=== PATIENT | female | born 1960 | race Caucasian/White ===

== ENCOUNTER 2016-05-16 10:44 | Emergency (ER) | payer MEDICARE, MEDICAID ==
[2016-05-16] MEDS ORDERED: DEXAMETHASONE 10 MG/ML VIAL IVP STA (13:02)
[2016-05-16] MEDS ORDERED: ONDANSETRON 4 MG/2 ML VIAL IVP STA (13:02)
[2016-05-16] MEDS ORDERED: ALBUTEROL NEB 2.5 MG/3 ML INH STA (13:02)
[2016-05-16] MEDS ORDERED: KETOROLAC 60 MG/2 ML VIAL IVP STA (13:02)
[2016-05-16] MEDS ORDERED: SODIUM CHLORIDE 0.9% 1,000 ML IV ONE ×2 (13:02→13:09)
[2016-05-16] MEDS ORDERED: DEXAMETHASONE 10 MG/ML VIAL ONE (13:09)
[2016-05-16] MEDS ORDERED: ONDANSETRON 4 MG/2 ML VIAL ONE (13:09)
[2016-05-16] MEDS ORDERED: KETOROLAC 60 MG/2 ML VIAL ONE (13:09)
[2016-05-16] MEDS ORDERED: ALBUTEROL NEB 2.5 MG/3 ML INH ONE (13:10)
== END 2016-05-16 14:40 | disposition home or self-care (01) ==
DX: J11.1 Influenza due to unidentified influenza virus with other respiratory manifestations (principal); I10 Essential (primary) hypertension
CPT/HCPCS: 36415; 80053; 83690; 85025; 94640; 94664; 96361; 96374; 96375; 99283; 99284; J7613

== ENCOUNTER 2016-05-20 | Emergency (ER) | payer MEDICARE, MEDICAID | END 2016-05-20 13:30 | disposition home or self-care (01) ==

== ENCOUNTER 2016-07-18 12:03 | Outpatient (CLI) | payer MEDICARE, MEDICAID | END 2016-07-18 12:04 | disposition home or self-care (01) | DX: E53.8 Deficiency of other specified B group vitamins (principal); E78.5 Hyperlipidemia, unspecified; E55.9 Vitamin D deficiency, unspecified; I10 Essential (primary) hypertension; J45.998 Other asthma ==

== ENCOUNTER 2016-08-14 14:25 | Outpatient (CLI) | payer MEDICARE, MEDICAID | END 2016-08-14 14:26 | disposition home or self-care (01) | LOC: DI 14:25 | PROVIDERS: ATTEND Family Medicine | DX: Z53.9 Procedure and treatment not carried out, unspecified reason (principal) ==

== ENCOUNTER 2016-08-14 14:54 | Outpatient (CLI) | payer MEDICARE, MEDICAID ==
--- NOTE | 2016-08-15 10:09 | XRAY Report ---
THREE-VIEW BILATERAL KNEES: 08/14/2016 CLINICAL INDICATION: Pain. FINDINGS: AP, lateral, sunrise views of the bilateral knees demonstrate moderate right and mild left knee osteoarthritis. There is no evidence of fracture or dislocation. No effusion is present. IMPRESSION: MODERATE RIGHT AND MILD LEFT KNEE OSTEOARTHRITIS. JOB #: [id number] EXT JOB #:[id number]
--- NOTE | 2016-08-15 10:11 | XRAY Report ---
LEFT HIP AND PELVIS: 08/14/2016 CLINICAL INDICATION: Pain. FINDINGS: Frontal view of the hips and pelvis and frogleg lateral view of the left hip demonstrate m ild osteoarthritis. There is no evidence of fracture or dislocation. The visualized bowel gas patte rn appears unremarkable. IMPRESSION: MILD LEFT HIP OSTEOARTHRITIS. JOB #: [id number] EXT JOB #:[id number]
== END 2016-08-14 14:55 | disposition home or self-care (01) ==
LOC: DI 14:54
PROVIDERS: ATTEND Family Medicine
DX: M17.0 Bilateral primary osteoarthritis of knee (principal); M16.12 Unilateral primary osteoarthritis, left hip

== ENCOUNTER 2016-09-09 13:55 | Outpatient (CLI) | payer MEDICARE, MEDICAID ==
--- NOTE | 2016-09-09 16:30 | Mammography Report ---
DIGITAL DIAGNOSTIC BILATERAL MAMMOGRAM: 09/09/2016 CLINICAL INDICATION: Right breast pain. COMPARISON: 03/28/2013, 05/02/2008, 08/04/2007. TECHNIQUE: Routine CC and MLO projections were obtained of the breasts. The breasts again demonstrate scattered fibroglandular densities bilaterally. Post-biopsy changes in the right breast are stable. Punctate, typically benign calcifications are noted. No suspicious ma ss, clustered microcalcifications, or regions of architectural distortion are identified. IMPRESSION: BENIGN FINDINGS. RECOMMENDATION: ROUTINE ANNUAL SCREENING UNLESS OTHERWISE CLINICALLY INDICATED. BIRADS CATEGORY: 2, BENIGN FINDINGS. STANDARD QUALIFYING STATEMENTS 1. This examination was reviewed with the aid of Computed-Aided Detection (CAD). 2. A negative or benign imaging report should not delay biopsy if clinically suspicious findings are present. Consider surgical consultation if warranted. More than 5% of cancers are not identified b y imaging. 3. Dense breasts may obscure an underlying neoplasm. JOB #: [id number] EXT JOB #:[id number]
== END 2016-09-09 13:56 | disposition home or self-care (01) ==
LOC: DI 13:55
PROVIDERS: ATTEND Family Medicine
DX: N64.4 Mastodynia (principal)
CPT/HCPCS: 77066

== ENCOUNTER 2020-12-04 11:55 | Outpatient (CLI) | payer MEDICARE, MEDICAID ==
[2020-12-04 12:18] LABS: BASOPHILS # (AUTO) 0.1 10^3/uL (0.0-0.1); BASOPHILS % (AUTO) 0.7 %; EOSINOPHILS # (AUTO) 0.2 10^3/uL (0.0-0.7); EOSINOPHILS % (AUTO) 2.7 %; HCT - HEMATOCRIT 44.6 % (37.0-47.0); HGB - HEMOGLOBIN 14.6 g/dL (12.0-16.0); LYMPHOCYTES # (AUTO) 2.4 10^3/uL (1.5-3.5); LYMPHOCYTES % (AUTO) 34.9 %; MEAN CORPUSCULAR HGB CONC 32.7 g/dL (32.0-36.0); MEAN CORPUSCULAR VOLUME 88.7 fL (81.0-99.0); MEAN PLATELET VOLUME 8.9 fL (7.9-10.8); MONOCYTES # (AUTO) 0.6 10^3/uL (0.0-1.0); NEUTROPHILS # (AUTO) 3.5 10^3/uL (1.5-6.6); NEUTROPHILS % (AUTO) 52.1 %; PLT - PLATELET COUNT 266 10^3/uL (130-450); RED BLOOD COUNT 5.03 10^6/uL (4.20-5.40); RED CELL DISTRIBUTION WIDTH 13.5 % (12.0-15.0); WHITE BLOOD COUNT 6.8 x10^3/uL (4.8-10.8)
[2020-12-04 13:03] LABS: ALBUMIN/GLOBULIN RATIO 1.1 (1.0-2.2); ALKALINE PHOSPHATASE 64 IU/L (42-121); ALT ALANINE AMINOTRANSFERASE 16 IU/L (10-60); AST ASPARTATE AMINOTRANSFERASE 18 IU/L (10-42); BILIRUBIN,TOTAL 0.5 mg/dL (0.2-1.0); BUN - BLOOD UREA NITROGEN 12 mg/dL (6-20); CALCIUM 9.5 mg/dL (8.5-10.3); CARBON DIOXIDE - CO2 25 mmol/L (21-32); CHLORIDE 107 mmol/L (101-111); CHOL/HDL RATIO 4.3 (<4.4); CHOLESTEROL 213 mg/dL; CREATININE 0.7 mg/dL (0.4-1.0); GFR - MDRD 86 (>89); GLUCOSE 106 mg/dL (70-100); HDL CHOLESTEROL 50 mg/dL; LDL CHOLESTEROL,CALCULATED 124 mg/dL; LDL/HDL RATIO 2.5 (<4.4); POTASSIUM 4.3 mmol/L (3.5-5.0); SODIUM 142 mmol/L (135-145); TOTAL PROTEIN 7.5 g/dL (6.7-8.2); TRIGLYCERIDES 195 mg/dL; VLDL CHOLESTEROL 39 mg/dL
== END 2020-12-04 11:56 | disposition home or self-care (01) ==
LOC: LAB 11:55
PROVIDERS: ATTEND Family Medicine
DX: E78.5 Hyperlipidemia, unspecified (principal)
CPT/HCPCS: 36415; 80053; 80061; 83721; 84443; 85025

== ENCOUNTER 2021-07-18 09:59 | Outpatient (CLI) | payer MEDICARE, MEDICAID ==
[2021-07-18 10:19] LABS: BASOPHILS # (AUTO) 0.1 10^3/uL (0.0-0.1); EOSINOPHILS # (AUTO) 0.2 10^3/uL (0.0-0.7); EOSINOPHILS % (AUTO) 2.7 %; HGB - HEMOGLOBIN 14.6 g/dL (12.0-16.0); LYMPHOCYTES # (AUTO) 2.7 10^3/uL (1.5-3.5); LYMPHOCYTES % (AUTO) 36.6 %; MEAN CORPUSCULAR HEMOGLOBIN 28.1 pg (27.0-31.0); MEAN CORPUSCULAR HGB CONC 32.4 g/dL (32.0-36.0); MEAN CORPUSCULAR VOLUME 86.5 fL (81.0-99.0); MEAN PLATELET VOLUME 8.9 fL (7.9-10.8); MONOCYTES # (AUTO) 0.6 10^3/uL (0.0-1.0); MONOCYTES % (AUTO) 7.5 %; NEUTROPHILS # (AUTO) 3.8 10^3/uL (1.5-6.6); NEUTROPHILS % (AUTO) 51.9 %; PLT - PLATELET COUNT 301 10^3/uL (130-450); RED CELL DISTRIBUTION WIDTH 13.4 % (12.0-15.0); WHITE BLOOD COUNT 7.3 x10^3/uL (4.8-10.8)
[2021-07-18 10:38] LABS: ALBUMIN 3.9 g/dL (3.2-5.5); ALKALINE PHOSPHATASE 61 IU/L (42-121); ALT ALANINE AMINOTRANSFERASE 16 IU/L (10-60); AST ASPARTATE AMINOTRANSFERASE 20 IU/L (10-42); BILIRUBIN,TOTAL 0.6 mg/dL (0.2-1.0); BUN - BLOOD UREA NITROGEN 15 mg/dL (6-20); CALCIUM 9.2 mg/dL (8.5-10.3); CARBON DIOXIDE - CO2 26 mmol/L (21-32); CHLORIDE 102 mmol/L (101-111); CHOL/HDL RATIO 3.6 (<4.4); CHOLESTEROL 200 mg/dL; CREATININE 0.8 mg/dL (0.4-1.0); GFR - MDRD 73 (>89); GLUCOSE 105 mg/dL (70-100); HDL CHOLESTEROL 56 mg/dL; LDL CHOLESTEROL,CALCULATED 103 mg/dL; LDL/HDL RATIO 1.8 (<4.4); SODIUM 138 mmol/L (135-145); TOTAL PROTEIN 7.9 g/dL (6.7-8.2); TRIGLYCERIDES 206 mg/dL; VLDL CHOLESTEROL 41 mg/dL
[2021-07-18 10:49] LABS: THYROID STIMULATING HORMONE 4.76 uIU/mL (0.34-5.60)
== END 2021-07-18 10:00 | disposition home or self-care (01) ==
LOC: LAB 09:59
PROVIDERS: ATTEND Family Medicine
DX: I10 Essential (primary) hypertension (principal); E78.5 Hyperlipidemia, unspecified; E53.8 Deficiency of other specified B group vitamins; Z78.9 Other specified health status
CPT/HCPCS: 36415; 80053; 80061; 82607; 83721; 84443; 85025; 87902

== ENCOUNTER 2022-01-29 10:33 | Outpatient (CLI) | payer MEDICARE, MEDICAID ==
[2022-01-29 10:49] LABS: BASOPHILS # (AUTO) 0.1 10^3/uL (0.0-0.1); BASOPHILS % (AUTO) 1.1 %; EOSINOPHILS # (AUTO) 0.4 10^3/uL (0.0-0.7); EOSINOPHILS % (AUTO) 5.6 %; HCT - HEMATOCRIT 42.3 % (37.0-47.0); HGB - HEMOGLOBIN 13.5 g/dL (12.0-16.0); LYMPHOCYTES # (AUTO) 2.7 10^3/uL (1.5-3.5); LYMPHOCYTES % (AUTO) 35.9 %; MEAN CORPUSCULAR HEMOGLOBIN 28.1 pg (27.0-31.0); MEAN CORPUSCULAR HGB CONC 31.9 g/dL (32.0-36.0); MEAN CORPUSCULAR VOLUME 87.9 fL (81.0-99.0); MEAN PLATELET VOLUME 8.7 fL (7.9-10.8); MONOCYTES # (AUTO) 0.7 10^3/uL (0.0-1.0); MONOCYTES % (AUTO) 8.6 %; NEUTROPHILS # (AUTO) 3.7 10^3/uL (1.5-6.6); NEUTROPHILS % (AUTO) 48.4 %; PLT - PLATELET COUNT 254 10^3/uL (130-450); RED BLOOD COUNT 4.81 10^6/uL (4.20-5.40); RED CELL DISTRIBUTION WIDTH 13.6 % (12.0-15.0); WHITE BLOOD COUNT 7.5 x10^3/uL (4.8-10.8)
[2022-01-29 11:17] LABS: ALBUMIN 3.8 g/dL (3.2-5.5); ALBUMIN/GLOBULIN RATIO 1.1 (1.0-2.2); ALKALINE PHOSPHATASE 51 IU/L (42-121); ALT ALANINE AMINOTRANSFERASE 15 IU/L (10-60); AST ASPARTATE AMINOTRANSFERASE 18 IU/L (10-42); BILIRUBIN,TOTAL 0.5 mg/dL (0.2-1.0); BUN - BLOOD UREA NITROGEN 14 mg/dL (6-20); CALCIUM 9.2 mg/dL (8.5-10.3); CARBON DIOXIDE - CO2 25 mmol/L (21-32); CHLORIDE 107 mmol/L (101-111); CHOL/HDL RATIO 3.5 (<4.4); CHOLESTEROL 198 mg/dL; CREATININE 0.7 mg/dL (0.4-1.0); GFR - MDRD 86 (>89); GLUCOSE 98 mg/dL (70-100); HDL CHOLESTEROL 57 mg/dL; LDL CHOLESTEROL,CALCULATED 111 mg/dL; LDL/HDL RATIO 1.9 (<4.4); SODIUM 139 mmol/L (135-145); TOTAL PROTEIN 7.3 g/dL (6.7-8.2); TRIGLYCERIDES 148 mg/dL; VLDL CHOLESTEROL 30 mg/dL
[2022-01-30 04:09] LABS: HCV AB <0.1 s/co ratio (0.0-0.9)
== END 2022-01-29 10:34 | disposition home or self-care (01) ==
LOC: LAB 10:33
PROVIDERS: ATTEND Family Medicine
DX: E53.8 Deficiency of other specified B group vitamins (principal); I10 Essential (primary) hypertension; E78.5 Hyperlipidemia, unspecified; Z78.9 Other specified health status
CPT/HCPCS: 36415; 80053; 80061; 82607; 83721; 85025; 86803

== ENCOUNTER 2022-08-20 10:06 | Outpatient (CLI) | payer MEDICARE, MEDICAID ==
[2022-08-20 10:24] LABS: BASOPHILS # (AUTO) 0.1 10^3/uL (0.0-0.1); BASOPHILS % (AUTO) 1.1 %; EOSINOPHILS # (AUTO) 0.3 10^3/uL (0.0-0.7); EOSINOPHILS % (AUTO) 4.1 %; HCT - HEMATOCRIT 42.9 % (37.0-47.0); HGB - HEMOGLOBIN 13.7 g/dL (12.0-16.0); LYMPHOCYTES # (AUTO) 2.6 10^3/uL (1.5-3.5); LYMPHOCYTES % (AUTO) 35.5 %; MEAN CORPUSCULAR HEMOGLOBIN 28.3 pg (27.0-31.0); MEAN CORPUSCULAR HGB CONC 31.9 g/dL (32.0-36.0); MEAN CORPUSCULAR VOLUME 88.6 fL (81.0-99.0); MEAN PLATELET VOLUME 9.2 fL (7.9-10.8); MONOCYTES # (AUTO) 0.6 10^3/uL (0.0-1.0); MONOCYTES % (AUTO) 7.6 %; NEUTROPHILS # (AUTO) 3.8 10^3/uL (1.5-6.6); NEUTROPHILS % (AUTO) 51.3 %; PLT - PLATELET COUNT 277 10^3/uL (130-450); RED BLOOD COUNT 4.84 10^6/uL (4.20-5.40); RED CELL DISTRIBUTION WIDTH 13.2 % (12.0-15.0); WHITE BLOOD COUNT 7.4 x10^3/uL (4.8-10.8)
[2022-08-20 10:36] LABS: ALBUMIN 3.9 g/dL (3.2-5.5); ALBUMIN/GLOBULIN RATIO 1.1 (1.0-2.2); BILIRUBIN,TOTAL 0.4 mg/dL (0.2-1.0); CREATININE 0.7 mg/dL (0.4-1.0); POTASSIUM 3.8 mmol/L (3.5-5.0); TOTAL PROTEIN 7.4 g/dL (6.7-8.2)
== END 2022-08-20 10:07 | disposition home or self-care (01) ==
LOC: LAB 10:06
PROVIDERS: ATTEND Family Medicine
DX: I10 Essential (primary) hypertension (principal); E78.5 Hyperlipidemia, unspecified
CPT/HCPCS: 36415; 80053; 84443; 85025

== ENCOUNTER 2023-05-14 12:58 | Outpatient (CLI) | payer MEDICARE, MEDICAID ==
--- NOTE | 2023-05-15 09:14 | Mammography Report ---
BILATERAL DIGITAL SCREENING MAMMOGRAM 3D/2D: 05/14/2023 CLINICAL: Routine screening. Comparison is made to exam dated: 09/09/2016 mammogram - [facility]. There are scattered areas of fibroglandular density in both breasts (category b / 25%-50% glandular t issue). There are benign calcifications in both breasts. There also is a biopsy clip in the right breast. No significant masses, calcifications, or other findings are seen in either breast. There has been no significant interval change. IMPRESSION: BENIGN There is no mammographic evidence of malignancy. A 1 year screening mammogram is recommended. Based on the Tyrer Cuzick model (a risk assessment model) the patient's lifetime risk is 5.1% and her 10 year risk is 2.1%. According to the ACR, ACS, and NCCN guidelines, an annual breast MRI exam karolina g with mammogram is recommended if the patient's lifetime risk is 20% or greater. This exam was interpreted at Station ID: [id number]. NOTE: For mammograms, a report in lay terms will be sent to the patient. Approximately 15% of breast malignancies will not be visualized mammographically. In the management of a palpable breast mass, a negative mammogram must not discourage biopsy of a clinically suspicious lesion. Electronically Signed By: Andrea lynen/zac:05/14/2023 13:43:34 letter sent: No_Letter ACR BI-RADS Category 2: Benign Finding(s) 3342F PARENCHYMAL PATTERN: (A) - The breast(s) demonstrate(s) scattered fibroglandular densities. BI-RADS CATEGORY: (2) - 2 Mammogram [id number] 1 year screening LATERALITY: (B)
== END 2023-05-14 12:59 | disposition home or self-care (01) ==
LOC: DI 12:58
DX: Z12.31 Encounter for screening mammogram for malignant neoplasm of breast (principal); R92.323 Mammographic fibroglandular density, bilateral breasts

== ENCOUNTER 2023-05-20 12:19 | Outpatient (CLI) | payer MEDICARE, MEDICAID ==
[2023-05-20 12:35] LABS: BASOPHILS # (AUTO) 0.1 10^3/uL (0.0-0.1); BASOPHILS % (AUTO) 0.9 %; EOSINOPHILS # (AUTO) 0.2 10^3/uL (0.0-0.7); EOSINOPHILS % (AUTO) 2.6 %; HCT - HEMATOCRIT 46.9 % (37.0-47.0); HGB - HEMOGLOBIN 14.7 g/dL (12.0-16.0); LYMPHOCYTES # (AUTO) 2.7 10^3/uL (1.5-3.5); LYMPHOCYTES % (AUTO) 30.4 %; MEAN CORPUSCULAR HEMOGLOBIN 27.6 pg (27.0-31.0); MEAN CORPUSCULAR HGB CONC 31.3 g/dL (32.0-36.0); MEAN CORPUSCULAR VOLUME 88.2 fL (81.0-99.0); MEAN PLATELET VOLUME 9.1 fL (7.9-10.8); MONOCYTES # (AUTO) 0.7 10^3/uL (0.0-1.0); MONOCYTES % (AUTO) 8.4 %; NEUTROPHILS % (AUTO) 57.5 %; PLT - PLATELET COUNT 298 10^3/uL (130-450); RED BLOOD COUNT 5.32 10^6/uL (4.20-5.40); RED CELL DISTRIBUTION WIDTH 13.4 % (12.0-15.0); WHITE BLOOD COUNT 8.8 x10^3/uL (4.8-10.8)
[2023-05-20 13:12] LABS: ALBUMIN 4.3 g/dL (3.2-5.5); ALBUMIN/GLOBULIN RATIO 1.2 (1.0-2.2); ALKALINE PHOSPHATASE 69 IU/L (42-121); ALT ALANINE AMINOTRANSFERASE 20 IU/L (10-60); AST ASPARTATE AMINOTRANSFERASE 18 IU/L (10-42); BILIRUBIN,TOTAL 0.4 mg/dL (0.2-1.0); BUN - BLOOD UREA NITROGEN 11 mg/dL (6-20); CALCIUM 9.7 mg/dL (8.5-10.3); CARBON DIOXIDE - CO2 29 mmol/L (21-32); CHLORIDE 105 mmol/L (101-111); CHOL/HDL RATIO 3.4 (<4.4); CHOLESTEROL 182 mg/dL; CREATININE 0.7 mg/dL (0.6-1.3); GFR - MDRD 85 (>89); GLUCOSE 100 mg/dL (74-104); HDL CHOLESTEROL 54 mg/dL; LDL CHOLESTEROL,CALCULATED 88 mg/dL; LDL/HDL RATIO 1.6 (<4.4); POTASSIUM 4.3 mmol/L (3.5-4.5); SODIUM 140 mmol/L (135-145); TOTAL PROTEIN 7.8 g/dL (6.4-8.9); TRIGLYCERIDES 202 mg/dL (48-352); VLDL CHOLESTEROL 40 mg/dL
[2023-05-20 13:13] LABS: THYROID STIMULATING HORMONE 2.06 uIU/mL (0.34-5.60)
== END 2023-05-20 12:20 | disposition home or self-care (01) ==
LOC: LAB 12:19
PROVIDERS: ATTEND Family Medicine
DX: I10 Essential (primary) hypertension (principal); E78.5 Hyperlipidemia, unspecified; Z13.29 Encounter for screening for other suspected endocrine disorder; Z13.228 Encounter for screening for other metabolic disorders
CPT/HCPCS: 36415; 80053; 80061; 83721; 84439; 84443; 85025

== ENCOUNTER 2023-06-06 13:03 | Outpatient (CLI) | payer MEDICARE, MEDICAID ==
--- NOTE | 2023-06-07 20:07 | Ultrasound Report ---
PROCEDURE: Pelvic w/Transvaginal INDICATIONS: VAG BLEED TECHNIQUE: Real-time scanning was performed of the pelvic organs, with image documentation. Additional endovagi nal scanning was necessary due to incomplete visualization of the adnexal and endometrial structures by transabdominal scanning. COMPARISON: None. FINDINGS: Uterus: Partial hysterectomy. Ovaries: Right oophorectomy. The left ovary measures 1.5 x 0.8 x 1.1 cm, with a calculated ovarian vo lume of 0.7 the left ovary has a normal sonographic appearance with less than 12 follicles. No adnexa l masses are seen. No cystic lesions measuring greater than 3 cm. Other: No pathologic free abdominal or pelvic fluid. IMPRESSION: 1.Partial hysterectomy and right oophorectomy. 2.Normal sonographic appearance of the left ovary. Reviewed by: Imer Gracia MD on 06/07/2023 8:06 PM PDT Approved by: Imer Gracia MD on 06/07/2023 8:06 PM PDT Station ID: [id number]
== END 2023-06-06 13:04 | disposition home or self-care (01) ==
LOC: DI 13:03
PROVIDERS: ATTEND Family Medicine
DX: N93.9 Abnormal uterine and vaginal bleeding, unspecified (principal); R10.2 Pelvic and perineal pain; Z90.710 Acquired absence of both cervix and uterus; Z90.721 Acquired absence of ovaries, unilateral

== ENCOUNTER 2023-09-25 10:30 | Outpatient (CLI) | payer MEDICARE, MEDICAID ==
[2023-09-25 10:42] LABS: BASOPHILS # (AUTO) 0.1 10^3/uL (0.0-0.1); BASOPHILS % (AUTO) 0.8 %; EOSINOPHILS # (AUTO) 0.2 10^3/uL (0.0-0.7); EOSINOPHILS % (AUTO) 2.8 %; HCT - HEMATOCRIT 45.7 % (37.0-47.0); HGB - HEMOGLOBIN 14.2 g/dL (12.0-16.0); LYMPHOCYTES # (AUTO) 3.1 10^3/uL (1.5-3.5); LYMPHOCYTES % (AUTO) 35.8 %; MEAN CORPUSCULAR HEMOGLOBIN 27.6 pg (27.0-31.0); MEAN CORPUSCULAR HGB CONC 31.1 g/dL (32.0-36.0); MEAN CORPUSCULAR VOLUME 88.9 fL (81.0-99.0); MEAN PLATELET VOLUME 9.2 fL (7.9-10.8); MONOCYTES # (AUTO) 0.7 10^3/uL (0.0-1.0); MONOCYTES % (AUTO) 7.8 %; NEUTROPHILS # (AUTO) 4.5 10^3/uL (1.5-6.6); NEUTROPHILS % (AUTO) 52.6 %; PLT - PLATELET COUNT 294 10^3/uL (130-450); RED BLOOD COUNT 5.14 10^6/uL (4.20-5.40); RED CELL DISTRIBUTION WIDTH 13.3 % (12.0-15.0); WHITE BLOOD COUNT 8.6 x10^3/uL (4.8-10.8)
[2023-09-25 10:58] LABS: ALBUMIN 4.1 g/dL (3.2-5.5); ALBUMIN/GLOBULIN RATIO 1.2 (1.0-2.2); ALKALINE PHOSPHATASE 69 IU/L (42-121); ALT ALANINE AMINOTRANSFERASE 16 IU/L (10-60); AST ASPARTATE AMINOTRANSFERASE 18 IU/L (10-42); BILIRUBIN,TOTAL 0.5 mg/dL (0.2-1.0); BUN - BLOOD UREA NITROGEN 12 mg/dL (6-20); CALCIUM 9.8 mg/dL (8.5-10.3); CARBON DIOXIDE - CO2 25 mmol/L (21-32); CHLORIDE 105 mmol/L (101-111); CHOL/HDL RATIO 3.7 (<4.4); CHOLESTEROL 192 mg/dL; CREATININE 0.7 mg/dL (0.6-1.3); GFR - MDRD 85 (>89); GLUCOSE 91 mg/dL (74-104); HDL CHOLESTEROL 52 mg/dL; LDL CHOLESTEROL,CALCULATED 95 mg/dL; LDL/HDL RATIO 1.8 (<4.4); POTASSIUM 4.3 mmol/L (3.5-4.5); SODIUM 138 mmol/L (135-145); TOTAL PROTEIN 7.5 g/dL (6.4-8.9); TRIGLYCERIDES 224 mg/dL (48-352); VLDL CHOLESTEROL 45 mg/dL
[2023-09-25 11:13] LABS: THYROID STIMULATING HORMONE 2.24 uIU/mL (0.34-5.60)
--- NOTE | 2023-09-25 13:01 | XRAY Report ---
PROCEDURE: Cervical Spine 2-3V INDICATIONS: NECK PAIN TECHNIQUE: 3 views of the cervical spine were acquired. COMPARISON: None. FINDINGS: Bones: No acute fractures or dislocations to the T1 level. The lateral masses of C1 appear intact o n the odontoid view. No suspicious bony lesions. Multilevel degenerative endplate changes are presen t. Mild multilevel uncovertebral joint and facet hypertrophy. Soft tissues: No prevertebral soft tissue swelling. IMPRESSION: 1.No displaced fracture or traumatic subluxation. 2.Mild cervical spondylosis. Reviewed by: Nemesio Soriano MD on 09/25/2023 12:59 PM PDT Approved by: Nemesio Soriano MD on 09/25/2023 12:59 PM PDT Station ID: [id number]
== END 2023-09-25 10:31 | disposition home or self-care (01) ==
LOC: DI 10:30
PROVIDERS: ATTEND Family Medicine
DX: M47.812 Spondylosis without myelopathy or radiculopathy, cervical region (principal); E78.00 Pure hypercholesterolemia, unspecified; N94.9 Unspecified condition associated with female genital organs and menstrual cycle; I10 Essential (primary) hypertension; N90.7 Vulvar cyst; N95.2 Postmenopausal atrophic vaginitis; Z13.0 Encounter for screening for diseases of the blood and blood-forming organs and certain disorders involving the immune mechanism
CPT/HCPCS: 36415; 80053; 80061; 83721; 84443; 85025